=== PATIENT | male | born 1970 | race Caucasian/White ===

== ENCOUNTER 2022-12-22 14:43 | Emergency (ER) | payer OTHER ==
[2022-12-22 15:02] VITALS: BP 147/94; PULSE 99; RESP 18; TEMP 98; O2SAT 93
--- NOTE | 2022-12-22 15:22 | ERPHSYRPT ---
- History of Present Illness Time Seen by Provider: 12/22/22 14:55 Source: patient Exam Limitations: no limitations Patient Subjective Stated Complaint: C/O laceration to left hand fifth digit. Patient states he cut his finger with a pocket knife around 10am today while tr amirah to cut a zip tie. Triage Nursing Assessment: Patient ambulated back to ER without difficulties. He is alert and oriented. A piece of a black glove present over his left hand fifth digit. Glove removed and a dressing was in place under the glove. Dressing and "stop the bleed" packing removed from cut. Laceration present measuring 0.3xm X 1.3cm. Active bleeding present once packing removed. Physician History: This is a right-handed 52-year-old white male patient who was using a knife at approximately 10:00 this morning to cut open a zip tie and accidentally cut the left fifth digit distally in a horizontal fashion. He put a pressure dressing on it as he was at work and continue to work then came to the emergency department for definitive care. Patient states it was a brand-new knife. He does not want a tetanus injection. Timing/Duration: today Quality: painful Severity: mild Location: hands (Left hand fifth digit distally) Associated Symptoms: denies symptoms Allergies/Adverse Reactions: amoxicillin Allergy (Verified 12/22/22 14:50) Hives Penicillins Allergy (Verified 12/22/22 14:50) Hives Home Medications: No Reportable Medications [No Reported Medications] 12/22/22 [History] Hx Tetanus, Diphtheria Vaccination/Date Given: Yes (Not tetanus) Hx Influenza Vaccination/Date Given: No Hx Pneumococcal Vaccination/Date Given: No Immunizations Up to Date: Yes Travel Risk - International Travel Have you traveled outside of the country in past 3 weeks: No - Coronavirus Screening Are you exhibiting any of the following symptoms?: No Close contact with a COVID-19 positive Pt in past 14-21 Days: No - Vaccine Status Have you recieved a Covid-19 vaccination: Yes [address] Sprinkler: Unknown - Vaccination Dates Dates if Unknown: ? - Review of Systems Constitutional: No Symptoms Eyes: No Symptoms Ears, Nose, & Throat: No Symptoms Respiratory: No Symptoms Cardiac: No Symptoms Abdominal/Gastrointestinal: No Symptoms Genitourinary Symptoms: No Symptoms Musculoskeletal: No Symptoms Skin: Other (Laceration left fifth digit distally) Neurological: No Symptoms Psychological: No Symptoms Endocrine: No Symptoms Hematologic/Lymphatic: No Symptoms Immunological/Allergic: No Symptoms All Other Systems: Reviewed and Negative - Past Medical History Pertinent Past Medical History: No - Past Surgical History Past Surgical History: No - Social History Smoking Status: Never smoker Exposure to second hand smoke: No Drug Use: none Patient Lives Alone: No - Nursing Vital Signs Nursing Vital Signs: Initial Vital Signs Temperature 98 F 12/22/22 14:43 Pulse Rate 99 H 12/22/22 14:43 Respiratory Rate 18 12/22/22 14:43 Blood Pressure 157/94 12/22/22 14:43 O2 Sat by Pulse Oximetry 97 12/22/22 14:43 Pain Scale Pain Intensity 4 - Physical Exam General Appearance: no apparent distress, alert, obese Eye Exam: PERRL/EOMI, eyes nml inspection Ears, Nose, Throat Exam: normal ENT inspection, moist mucous membranes Neck Exam: normal inspection, non-tender, supple, full range of motion Respiratory Exam: airway intact, No chest tenderness, No respiratory distress Gastrointestinal/Abdomen Exam: No tenderness Back Exam: normal inspection, normal range of motion, No CVA tenderness, No vertebral tenderness Extremity Exam: normal range of motion, pelvis stable, lacerations (1 cm horizontally oriented left fifth digit distally no foreign body present. Neurovascular intact. Tendons intact) Neurologic Exam: alert, oriented x 3, cooperative, [employer] developer II-XII nml as tested, nor mal mood/affect, nml cerebellar function, nml station & gait, sensation nml Skin Exam: laceration (See above extremity exam section) SpO2 Interpretation: borderline oxygenation SpO2: 93 O2 Delivery: Room Air Procedures - Laceration/Wound Repair Left Dorsal Finger Time of Procedure: 15:05 Wound Location: Left, hand (Distal fifth digit) Wound Length (cm): 1 Wound's Depth, Shape: superficial, linear, flap Wound Explored: clean (Wound explored to the base in a bloodless field and no foreign body noted) Irrigated: Yes Hibiclens Prep: Yes Wound Repaired With: Steri-strips, Dermabond (Left fifth digit was prepped with benzoin solution) Progress: 12/22/22 15:21 There were no complications and patient tolerated the procedure well - Progress Progress: improved Progress Note: 12/22/22 15:21 This patient's injury is work-related. He states he has a number for workman comp. The medical issue is of low complexity. No laboratory or radiographic studies necessary. Counseled pt/family regarding: diagnosis, need for follow-up Medical Desision Making - Diagnostic Testing Diagnostic test were ordered, analyzed, and reviewed by me: No - Risk of complications Minimal Risk: Minimal risk of morbidity - Departure Departure Disposition: Home Clinical Impression: Finger laceration Condition: Stable Critical Care Time: No Referrals: RASHIDA MOSES MD [Primary Care Provider] - Follow up/PCP as directed Additional Instructions: Keep the bandage in place and dry for 24 hours. After 24 hours, may remove the top pressure dressing and leave the Steri-Strips in place. At that time, you may allow the soapy water to rinse off the laceration repair site. Blot dry use a biology department chair. As the Steri-Strips curl up, trim them with scissors. The majority of them should fall off by day 7. Use Tylenol and ibuprofen for pain control.
== END 2022-12-22 15:35 | disposition home or self-care (01) ==
LOC: ED 14:43
DX: S61.217A Laceration without foreign body of left little finger without damage to nail, initial encounter (principal); W26.0XXA Contact with knife, initial encounter; Y99.0 Civilian activity done for income or pay
CPT/HCPCS: 12001; 99281

== ENCOUNTER 2024-03-17 08:59 | Emergency (ER) | payer OTHER ==
--- NOTE | 2024-03-17 09:07 | ERPHSYRPT ---
- History of Present Illness Time Seen by Provider: 03/17/24 09:06 Source: patient, family Exam Limitations: no limitations Physician History: Pt had onset of Clear Diarrhea after increasing his Wegovy as directed a week ago - No abd pain, but vomiting today which looked black. He was fine until the increase and has been on it for 3-4 months. Abd soft nontender without peritoneal signs or masses. Discussed with pt and family risks and benefits of testing/Tx including CBC, CMP, EKG, Trop, UA, Amylase, Lipase, CT , CXR, Zofran, IVF, And they wish to hold off on imaging at this time but go with all the rest and have the capacity to make this choice.. I further discussed possibility of pancreatitis and obstuction which imaging might help find but they still wish to avoid imaging at this time and again have the capacity to make this choice. They would like to culture the stool and I explained this will take days to result and they wish to proceed. These are ordered. Results discussed with pt and family. Timing/Duration: day(s) Severity: moderate Associated Symptoms: nausea, vomiting, abdominal pain, other (diarrhea) Allergies/Adverse Reactions: amoxicillin Allergy (Verified 03/17/24 09:03) Hives Penicillins Allergy (Verified 03/17/24 09:03) Hives Home Medications: Semaglutide [Wegovy] 0.5 mg SQ UD 03/17/24 [History] Hx Tetanus, Diphtheria Vaccination/Date Given: Yes (Not tetanus) Hx Influenza Vaccination/Date Given: No Hx Pneumococcal Vaccination/Date Given: No - Review of Systems Constitutional: No Fever, No Chills Eyes: No Symptoms Ears, Nose, & Throat: No Symptoms Respiratory: No Cough, No Dyspnea Cardiac: No Chest Pain, No Edema, No Syncope Abdominal/Gastrointestinal: Nausea, Vomiting, Diarrhea, No Abdominal Pain Genitourinary Symptoms: No Dysuria Musculoskeletal: No Back Pain, No Neck Pain Skin: No Rash Neurological: No Dizziness, No Focal Weakness, No Sensory Changes Psychological: No Symptoms Endocrine: No Symptoms Hematologic/Lymphatic: No Symptoms Immunological/Allergic: No Symptoms All Other Systems: Reviewed and Negative - Past Medical History Pertinent Past Medical History: No - Past Surgical History Past Surgical History: Yes Musculoskeletal: Orthopedic Surgery Other Surgical History: ankle surg, - Social History Smoking Status: Never smoker Exposure to second hand smoke: No Drug Use: none Patient Lives Alone: No - Nursing Vital Signs Nursing Vital Signs: Initial Vital Signs Temperature 97.3 F 03/17/24 09:11 Pulse Rate 100 H 03/17/24 09:11 Respiratory Rate 18 03/17/24 09:11 Blood Pressure 125/86 03/17/24 09:11 O2 Sat by Pulse Oximetry 95 03/17/24 09:11 Pain Scale Pain Intensity 3 - Physical Exam General Appearance: no apparent distress, alert Eye Exam: PERRL/EOMI, eyes nml inspection Ears, Nose, Throat Exam: normal ENT inspection, TMs normal, pharynx normal, moist mucous membranes Neck Exam: normal inspection, non-tender, supple, full range of motion Respiratory Exam: normal breath sounds, lungs clear, No respiratory distress Cardiovascular Exam: regular rate/rhythm, normal heart sounds, normal peripheral pulses Gastrointestinal/Abdomen Exam: soft, normal bowel sounds, No tenderness, No dist ention, No mass, No guarding, No pulsatile mass, No rebound Rectal Exam: deferred Back Exam: normal inspection, normal range of motion, No CVA tenderness, No vertebral tenderness Extremity Exam: normal inspection, normal range of motion, pelvis stable Neurologic Exam: alert, oriented x 3, cooperative, normal mood/affect, nml cerebellar function, nml station & gait, sensation nml, No motor deficits Skin Exam: normal color, warm, dry, No rash Lymphatic Exam: No adenopathy SpO2 Interpretation: normal SpO2: 96 O2 Delivery: Room Air - Course Nursing assessment & vital signs reviewed: Yes EKG Interpreted by Me: Sinus Rhythm, Right [place] Deviation, LAFB, Right Bundle Branch Block, Non-specific ST Changes, Other (low voltage QRS) Ordered Tests: Active Orders 24 hr Category Date Time Status EKG-ER Only STAT Care 03/17/24 09:22 Active IV Insertion STAT Care 03/17/24 09:22 Active AMYLASE Stat Lab 03/17/24 09:32 Completed CBC W DIFF Stat Lab 03/17/24 09:32 Completed CMP Stat Lab 03/17/24 09:32 Completed LIPASE Stat Lab 03/17/24 09:32 Completed Lactic Acid Stat Lab 03/17/24 09:22 Completed TROPONIN Q4H Lab 03/17/24 09:32 Completed TROPONIN Q4H Lab 03/17/24 13:30 Ordered TROPONIN Q4H Lab 03/17/24 17:30 Ordered UA W/RFX UR CULTURE Stat Lab 03/17/24 09:22 Ordered Medication Summary Discontinued Medications Generic Name Dose Route Start Last Admin Trade Name Willie PRN Reason Stop Dose Admin Famotidine 20 mg 03/17/24 09:22 03/17/24 09:34 Famotidine 20 Mg/1 Vial IV 03/17/24 09:23 20 mg STAT ONE Administration Famotidine Confirm 03/17/24 09:32 Famotidine 20 Mg/1 Vial Administered 03/17/24 09:33 Dose 20 mg IV .STK-MED ONE Sodium Chloride 1,000 mls @ 999 mls/hr 03/17/24 09:22 03/17/24 09:34 Sodium Chloride 0.9% 1000 Ml IV 03/17/24 10:22 999 mls/hr .Q1H1M STA Administration Sodium Chloride Confirm 03/17/24 09:32 Sodium Chloride 0.9% 1000 Ml Administered 03/17/24 09:33 Dose 1,000 mls @ ud .ROUTE .STK-MED ONE Ondansetron HCl 4 mg 03/17/24 09:22 03/17/24 09:35 Ondansetron Hcl 4 Mg/2 Ml Vial IV 03/17/24 09:23 4 mg STAT ONE Administration Ondansetron HCl Confirm 03/17/24 09:32 Ondansetron Hcl 4 Mg/2 Ml Vial Administered 03/17/24 09:33 Dose 4 mg .ROUTE .STK-MED ONE Lab/Rad Data: Laboratory Result Diagrams 03/17/24 09:32 03/17/24 09:32 Laboratory Results 03/17/24 03/17/24 03/17/24 Range/Units 09:32 09:32 09:32 WBC 5.9 (4.23-9.07) x10^3/uL RBC 5.07 (4.63-6.08) x10^6/uL Hgb 15.3 (13.7-17.5) g/dL Hct 45.5 (40.1-51.0) % MCV 89.7 (79.0-92.2) fL MCH 30.2 (25.7-32.2) pg MCHC 33.6 (32.3-36.5) g/dL RDW 13.1 (11.6-14.4) % Plt Count 188 (163-337) x10^3/uL MPV 10.1 (9.4-12.4) fL Gran % 84.9 H (34.0-67.9) % Immature Gran % (Auto) 0.3 (0.001-0.429) % Nucleat RBC Rel Count 0.0 (0.00-0.2) % Eos # (Auto) 0 L (0.04-0.54) x10^3/uL Immature Gran # (Auto) 0.02 (0.001-0.031) x10^3u/L Absolute Lymphs (auto) 0.45 L (1.32-3.57) x10^3/uL Absolute Monos (auto) 0.39 (0.30-0.82) x10^3/uL Absolute Nucleated RBC 0.00 (0.00-0.012) x10^3u/L Lymphocytes % 7.7 L (21.8-53.1) % Monocytes % 6.6 (5.3-12.2) % Eosinophils % 0.0 L (0.8-7.0) % Basophils % 0.5 (0.2-1.2) % Absolute Granulocytes 4.99 (1.78-5.38) x10^3/uL Basophils # 0.03 (0.01-0.08) x10^3/uL Sodium 139 (135-145) mmol/L Potassium 3.7 (3.5-5.1) mmol/L Chloride 106 (98-107) mmol/L Carbon Dioxide 24 (22-30) mmol/L Anion Gap 13.4 (5-15) MEQ/L BUN 19 (9-20) mg/dL Creatinine 0.90 (0.66-1.25) mg/dL Estimated GFR 103.4 ML/MIN Glucose 115 H (74-106) mg/dL Lactic Acid (0.4-2.0) Calcium 8.7 (8.4-10.2) mg/dL Total Bilirubin 1.40 H (0.2-1.3) mg/dL AST 25 (17-59) U/L ALT 25 (0-50) U/L Alkaline Phosphatase 66 (38-126) U/L Troponin I < 0.012 (0.000-0.033) ng/mL Serum Total Protein 6.8 (6.3-8.2) g/dL Albumin 4.3 (3.5-5.0) g/dL Amylase 41 (30-110) U/L Lipase 70 (23-300) U/L 03/17/24 Range/Units 09:22 WBC (4.23-9.07) x10^3/uL RBC (4.63-6.08) x10^6/uL Hgb (13.7-17.5) g/dL Hct (40.1-51.0) % MCV (79.0-92.2) fL MCH (25.7-32.2) pg MCHC (32.3-36.5) g/dL RDW (11.6-14.4) % Plt Count (163-337) x10^3/uL MPV (9.4-12.4) fL Gran % (34.0-67.9) % Immature Gran % (Auto) (0.001-0.429) % Nucleat RBC Rel Count (0.00-0.2) % Eos # (Auto) (0.04-0.54) x10^3/uL Immature Gran # (Auto) (0.001-0.031) x10^3u/L Absolute Lymphs (auto) (1.32-3.57) x10^3/uL Absolute Monos (auto) (0.30-0.82) x10^3/uL Absolute Nucleated RBC (0.00-0.012) x10^3u/L Lymphocytes % (21.8-53.1) % Monocytes % (5.3-12.2) % Eosinophils % (0.8-7.0) % Basophils % (0.2-1.2) % Absolute Granulocytes (1.78-5.38) x10^3/uL Basophils # (0.01-0.08) x10^3/uL Sodium (135-145) mmol/L Potassium (3.5-5.1) mmol/L Chloride (98-107) mmol/L Carbon Dioxide (22-30) mmol/L Anion Gap (5-15) MEQ/L BUN (9-20) mg/dL Creatinine (0.66-1.25) mg/dL Estimated GFR ML/MIN Glucose (74-106) mg/dL Lactic Acid 1.2 (0.4-2.0) Calcium (8.4-10.2) mg/dL Total Bilirubin (0.2-1.3) mg/dL AST (17-59) U/L ALT (0-50) U/L Alkaline Phosphatase (38-126) U/L Troponin I (0.000-0.033) ng/mL Serum Total Protein (6.3-8.2) g/dL Albumin (3.5-5.0) g/dL Amylase (30-110) U/L Lipase (23-300) U/L - Progress Progress: improved, re-examined Progress Note: 03/17/24 10:47 Discussed with pt and family that although egovy rxn is fitting the findings, there still could be undetected pathology including more severe wegovy complications evolving undetected also including cardiac even with negative enzymne and no CP ( 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 I discussed also considering Ab for the diarrhea and cluture but pt unable to give specimen and pt and family wish to try clear liquids and zofran and hold off on ab at this time. 03/17/24 10:51 03/17/24 10:56 Counseled pt/family regarding: lab results, diagnosis, need for follow-up Medical Desision Making - Independent Historian Additional History obtained from: Family - Discussion of managment Reviewed:: Test results, Need for additional workup Agreed on:: Treatment plan, need for follow-up - Diagnostic Testing Diagnostic test were ordered, analyzed, and reviewed by me: Yes - Risk of complications The pt has a mod risk of morbidity or mortality based on: Need for prescription drug management - Departure Departure Disposition: Home Clinical Impression: Vomiting, possible wegovy side effects/intolerance Condition: Good Critical Care Time: No Referrals: RASHIDA MOSES MD [Primary Care Provider] - Follow up/PCP as directed Instructions: Semaglutide Additional Instructions: As we discussed we did find some conduction findings on the EKG called RBBB and LAFB which should be followed up with your DrIrving for further workup. Even this may be due to the Wegovy med, There also could still be undetected conditions causing your vomiting or contributing, including unrelated infection or more serious complications, so it is important to see you to adjust your wegovy but stop in the meantime and drink clear liquids for at least a day to let your bowels settle. return meantime if any shortness of breath continued diarrhea or vomiting, abdominal or chest pain, dizziness, fever or any other concerns. Prescriptions: Ondansetron ODT 4 MG [Zofran Odt 4 mg] 4 mg PO Q6H PRN PRN #10 PRN Reason: Vomiting
[2024-03-17 09:13] VITALS: PULSE 100; RESP 18; TEMP 97.3
[2024-03-17] MEDS ORDERED: Sodium Chloride 0.9% 1000 ML 1,000 ML ONE (09:32)
[2024-03-17] MEDS ORDERED: Zofran 4 MG/2 ML VIAL ONE (09:32)
[2024-03-17] MEDS ORDERED: Pepcid 20 MG VIAL IV ONE (09:32)
[2024-03-17 09:33] LABS: Absolute Neutrophil Ct (ANC) 4.99 x10^3/uL (1.78-5.38); BASOPHIL % 0.5 % (0.2-1.2); Basophil (Absolute #) 0.03 x10^3/uL (0.01-0.08); Eosinophil (Absolute #) 0 x10^3/uL (0.04-0.54); Hematocrit 45.5 % (40.1-51.0); Hemoglobin 15.3 g/dL (13.7-17.5); IMMATURE GRAN # 0.02 x10^3u/L (0.001-0.031); IMMATURE GRAN % 0.3 % (0.001-0.429); Lymphocyte (Absolute #) 0.45 x10^3/uL (1.32-3.57); Lymphocytes % 7.7 % (21.8-53.1); Mean Cell Volume 89.7 fL (79.0-92.2); Mean Corpuscular Hemoglobin 30.2 pg (25.7-32.2); Mean Corpuscular Hgb Concent. 33.6 g/dL (32.3-36.5); Mean Platelet Volume 10.1 fL (9.4-12.4); Monocyte (Absolute #) 0.39 x10^3/uL (0.30-0.82); Monocytes % 6.6 % (5.3-12.2); Neutrophil % 84.9 % (34.0-67.9); Platelet Count 188 x10^3/uL (163-337); Red Blood Count 5.07 x10^6/uL (4.63-6.08); Red Cell Distribution Width 13.1 % (11.6-14.4); White Blood Count 5.9 x10^3/uL (4.23-9.07)
[2024-03-17] MEDS: Pepcid 20 MG VIAL IV ONE (09:34)
[2024-03-17] MEDS: Sodium Chloride 0.9% 1000 ML 1,000 ML IV STA (09:34)
[2024-03-17] MEDS: Zofran 4 MG/2 ML VIAL IV ONE (09:35)
[2024-03-17 09:51] LABS: ALBUMIN 4.3 g/dL (3.5-5.0); ANION GAP 13.4 MEQ/L (5-15); BILIRUBIN,TOTAL 1.4 mg/dL (0.2-1.3); Calcium 8.7 mg/dL (8.4-10.2); Creatinine 1 0.9 mg/dL (0.66-1.25); EST GLOMERULAR FILTRATION RATE 103.4 ML/MIN; Potassium 3.7 mmol/L (3.5-5.1); Total Protein 6.8 g/dL (6.3-8.2)
[2024-03-17 10:56] VITALS: O2SAT 96
[2024-03-17 11:09] VITALS: BP 111/86
[2024-03-17 11:47] LABS: Slide Review 1 YES
== END 2024-03-17 11:19 | disposition home or self-care (01) ==
LOC: ED 08:59
DX: R11.2 Nausea with vomiting, unspecified (principal); R19.7 Diarrhea, unspecified; Z79.85 Long-term (current) use of injectable non-insulin antidiabetic drugs
CPT/HCPCS: 36415; 80053; 82150; 83605; 83690; 84484; 85025; 93005; 96360; 96374; 96375; 99284; 99285; J2405